=== PATIENT | female | born 1995 | race Two or more races ===

== ENCOUNTER 2017-07-16 11:36 | Emergency (ER) | payer OTHER ==
[~2017-07-16] VITALS: Ht 157.5 cm; Wt 58.5 kg
[2017-07-16] MEDS ORDERED: NAPROSYN500 MG PO (13:25)
[2017-07-16 13:42] VITALS: BP 124/84
== END 2017-07-16 13:42 | disposition home or self-care (01) ==
LOC: EME 11:36
DX: G56.02 Carpal tunnel syndrome, left upper limb (principal)
CPT/HCPCS: 99281; 99283

== ENCOUNTER 2017-07-29 13:34 | Emergency (ER) | payer OTHER ==
[~2017-07-29] VITALS: Ht 157.5 cm; Wt 57.2 kg
[~2017-07-29 13:34] MED LIST: NAPROSYN500 MG PO
[2017-07-29] MEDS ORDERED: FLEXERIL10 MG PO (16:46)
[2017-07-29] MEDS ORDERED: NAPROSYN500 MG PO (16:46)
[2017-07-29] MEDS ORDERED: ATARAX,VISTARIL25 MG PO (16:46)
[2017-07-29 17:21] VITALS: BP 104/81
== END 2017-07-29 17:22 | disposition home or self-care (01) ==
LOC: EME 13:34
DX: S06.9X1A Unspecified intracranial injury with loss of consciousness of 30 minutes or less, initial encounter (principal); S00.03XA Contusion of scalp, initial encounter; S00.81XA Abrasion of other part of head, initial encounter; S00.01XA Abrasion of scalp, initial encounter; Y04.0XXA Assault by unarmed brawl or fight, initial encounter; Y07.03 Male partner, perpetrator of maltreatment and neglect
CPT/HCPCS: 70450; 70486; 99281; 99284; J1885

== ENCOUNTER 2018-01-14 12:31 | Emergency (ER) | payer OTHER ==
[~2018-01-14] VITALS: Ht 157.5 cm; Wt 64.1 kg
[~2018-01-14 12:31] MED LIST changes: +ATARAX,VISTARIL25 MG PO; +FLEXERIL10 MG PO
[2018-01-14 13:33] LABS: BASOPHIL (%) 0.3 % (0-1); EOSINOPHIL (%) 0.4 % (0-5); EOSINOPHIL COUNT 0.1 K/uL (0-0.3); HEMATOCRIT 32.2 % (36.0-46.0); HEMOGLOBIN 11.3 G/DL (11.9-15.5); IMMATURE GRANULOCYTE (%) 0.4 % (0.0-0.7); LYMPHOCYTE (%) 11.9 % (15-42); LYMPHOCYTE COUNT 1.3 K/uL (1.0-2.8); MCH 30.9 PG (29.0-34.0); MCHC 35.1 G/DL (30.0-36.0); MONOCYTE (%) 5.5 % (3-12); MONOCYTE COUNT 0.6 K/uL (0-0.8); NEUTROPHIL (%) 81.5 % (45-76); NEUTROPHIL COUNT 9.2 K/uL (1.8-6.4); PLATELET COUNT 174 K/uL (156-360); RBC DIS.WIDTH-CV 13.1 % (11.8-14.6); RBC DIS.WIDTH-SD 41.8 % (39-53); RED BLOOD COUNT 3.66 M/uL (3.80-5.20); WHITE BLOOD COUNT 11.3 K/uL (4.1-10.2)
[2018-01-14 13:54] LABS: ALBUMIN 3.6 g/dL (3.2-4.8); CHLORIDE 108 mEq/L (99-109); SODIUM 135 mEq/L (136-147)
[2018-01-14 13:57] LABS: GLUCOSE 73 mg/dL (70-99); TOTAL PROTEIN 6.6 g/dL (6.4-8.3)
[2018-01-14 13:59] LABS: TOTAL BILIRUBIN 0.3 mg/dL (0.0-1.0)
[2018-01-14 14:00] LABS: ALKALINE PHOSPHATASE 57 IU/L (3-129); CREATININE 0.6 mg/dL (0.6-1.3); GFR ESTIMATE (CALCULATED) > 59 mL/min/
[2018-01-14 14:01] LABS: TROP-I INTERPRETATION NEGATIVE; TROPONIN-I < 0.01 ng/mL (0.0-0.30); UREA NITROGEN (BUN) 5 mg/dL (9-23)
[2018-01-14 14:02] LABS: AST (GOT) 26 IU/L (2-34)
[2018-01-14 14:03] LABS: ALT (GPT) 31 IU/L (3-49)
[2018-01-14 14:04] LABS: LIPASE 4 U/L (1.0-51.0)
[2018-01-14 17:35] LABS: APPEARANCE CLOUDY ((CLEAR)); BILIRUBIN NEGATIVE; BLOOD NEGATIVE; COLOR YELLOW ((YELLOW)); GLUCOSE (STRIP) NEGATIVE; KETONES 5; LEUKOCYTES NEGATIVE; NITRITE NEGATIVE; PROTEIN (STRIP) 30; SPECIFIC GRAVITY 1.013 (1.000-1.030); UROBILINOGEN 0.2 MG/DL (0.2-1.0)
[2018-01-14 17:46] LABS: EPITHELIAL CELLS 4+ /HPF; MUCUS NONE SEEN /LPF
[2018-01-14 17:47] LABS: AMORPHOUS PHOSPHATE CRYSTALS 2+; BACTERIA 1+ /HPF; RED BLOOD CELLS NONE SEEN /HPF (0-5); UCUL ADDED? NO; WHITE BLOOD CELLS RARE /HPF (0-5)
[2018-01-14 18:56] VITALS: BP 122/76
== END 2018-01-14 18:58 | disposition home or self-care (01) ==
LOC: EME 12:31
PROVIDERS: Emergency Medicine
DX: O9A.212 Injury, poisoning and certain other consequences of external causes complicating pregnancy, second trimester (principal); S30.1XXA Contusion of abdominal wall, initial encounter; S00.03XA Contusion of scalp, initial encounter; Y04.2XXA Assault by strike against or bumped into by another person, initial encounter; Y92.009 Unspecified place in unspecified non-institutional (private) residence as the place of occurrence of the external cause; Z3A.20 20 weeks gestation of pregnancy
CPT/HCPCS: 70450; 76815; 80053; 81003; 83605; 83690; 84484; 85025; 85460; 86900; 86901; 99281; 99284